=== PATIENT | female | born 1935 | race Caucasian/White ===

== ENCOUNTER → 2017-01-08 | Outpatient (CLI) | payer MEDICARE, OTHER ==
[~2017-01-08] MED LIST: AMLO2.5T PO; ASPI-1085 PO; CALC-586 PO; FISH1CAP29 PO; HYDR-4246 PO; HYDR25TA PO; ISOS30TA53 PO; LISI40TA95 PO; METO-64 PO; PYRI100T2 PO; SIMV20TA2 PO; [UNRECOGNIZED DRUG - CODE] PO
--- NOTE | 2017-01-08 16:16 | DI ---
Indication: ITS.REASON: E04.1 Nontoxic single thyroid nodule PROCEDURE: US THYROID: Encounter: Subsequent Comparison: Thyroid ultrasound dated December 28, 2015 Technique: Grayscale and color Doppler sonographic imaging of the thyroid gland was performed. Findings: Stable appearance of a cystic right thyroid nodule measuring 1.2 x 0.9 x 1.3 cm in size with a thin internal septation and peripheral calcification. No internal Doppler flow seen within this lesion. Adjacent cystic 1.1 x 0.6 x 0.8 cm nodule is also unchanged. Left thyroid lobe shows a purely cystic 1 x 0.8 x 0.7 cm nodule which is stable allowing for differences in scan plane. There is also a septated 0.7 x 0.7 x 0.6 cm cystic nodule in the left lobe which is also stable in overall size with a couple coarse calcifications present. No internal vascular flow within this nodule. Thyroid isthmus appears normal measuring 0.3 cm in diameter. Right lobe measures 3.8 x 2 x 2 cm. Left lobe measures 3.7 x 1.5 x 1.7 cm. Impression: Stable bilateral thyroid nodules which are predominantly cystic. Follow-up ultrasound in one to two years could be performed to document complete continued stability. .
== END ==
LOC: IMA 15:04
PROVIDERS: ATTEND Family Medicine
DX: E04.2 Nontoxic multinodular goiter (principal)